=== PATIENT | female | born 1990 | race Caucasian/White ===

== ENCOUNTER → 2020-04-10 | Outpatient (CLI) | payer BC | LOC: DIA.ED 09:30 | DX: O24.419 Gestational diabetes mellitus in pregnancy, unspecified control (principal); E03.9 Hypothyroidism, unspecified | CPT/HCPCS: G0108 ==

== ENCOUNTER → 2020-04-20 | Outpatient (CLI) | payer BC | LOC: DIA.ED 10:15 | DX: O24.419 Gestational diabetes mellitus in pregnancy, unspecified control (principal); E03.9 Hypothyroidism, unspecified | CPT/HCPCS: G0108 ==

== ENCOUNTER → 2020-06-12 | Outpatient (CLI) | payer BC | LOC: ZCOL.LAB 09:30 | DX: Z20.828 Contact with and (suspected) exposure to other viral communicable diseases (principal) ==

== ENCOUNTER 2020-06-16 06:24 | Inpatient (IN) | payer BC ==
[~2020-06-16] VITALS: Ht 157.5 cm; Wt 80.7 kg
[2020-06-16] VITALS (42 sets, daily range): BP systolic 94–153; BP diastolic 49–87; PULSE 57–97; TEMP 97.8–98.5
--- NOTE | 2020-06-16 07:42 | NUR ---
PT HERE FOR INDUCTION OF LABOR. FHT'S FOUND IN THE 120-130'S WITH MODERATE VARIABILITY AND ACCELS. PLAN OF CARE REVIEWED WITH PT AND SIGNIFICANT OTHER. IV STARTED IN LEFT HAND WITH LR INFUSING WITHOUT DIFFICULTY. IV OF PEN G 5,000,000 UNITS STARTED AT 0730.
--- NOTE | 2020-06-16 08:00 | NUR ---
DR KIRKLAND HERE TO SEE PT. BEDSIDE ULTRASOUND PERFORMED AND BABY IS IN VERTEX POSITION. /-3. AROM NOT PERFORMED AT THIS TIME.
--- NOTE | 2020-06-16 08:16 | NUR ---
BLOOD GLUCOSE 122. OK PER DR KIRKLAND FOR PT TO USE OWN GLUCOMETER FOR EVERY 2 HOUR BLOOD SUGAR CHECKS
[2020-06-16 08:52] LABS: BASO % 0.3 % (0.0-2.0); EOS # 0.1 (0.0-0.7); EOS % 0.5 % (0-4.0); GRAN # 8.9 (1.4-6.5); GRAN % 72.4 % (42.2-75.2); HEMOGLOBIN 11.5 g/dl (12.5-16.0); LYMPH # 2.7 (1.2-3.4); MEAN CELL VOLUME 81 fl (80.0-100.0); MEAN CORPUSCULAR HEMOGLOBIN 26 pg (27.0-31.0); MEAN CORPUSCULAR HGB CONC 33 g/dl (33.0-37.0); MEAN PLATELET VOLUME 11.9 fl (7.4-10.4); MONO # 0.5 (0.1-0.6); MONO % 4.1 % (1.7-9.3); PLATELET COUNT 234 K/mm3 (130-400); REDCELL DISTRIBUTION WIDTH-CV 13.2 % (11.5-14.5)
[2020-06-16 08:57] LABS: HEMATOCRIT 35.4 % (37.0-47.0)
--- NOTE | 2020-06-16 10:00 | NUR ---
BLOOD SUGAR 100
--- NOTE | 2020-06-16 10:16 | NUR ---
TOCO READJUSTED IN ATTEMPT TO VACUUM SPINDLE SANDER CONTRACTIONS AGAIN. PT REPORTING SHE IS FEELING CONTRACTIONS MORE.
--- NOTE | 2020-06-16 11:00 | NUR ---
DR KIRKLAND HERE AT 1055. SVE /-3. AROM AT 1057 WITH CLEAR FLUID. PT REQUESTING EPIDURAL. LR FLUID BOLUS STARTED. KARIN KNOX, NOTIFIED PT WANTS EPIDURAL.
--- NOTE | 2020-06-16 11:15 | NUR ---
[employer]IOLOGIC TECHNOLOGIST, IN AT 1107 FOR EPIDURAL PLACEMENT. PT SITTING UP FOR EPIDURAL. SINGLE SHOT AT 1115 WITH NO ABNORMAL SYMPTOMS NOTED/REPORTED.
--- NOTE | 2020-06-16 12:00 | NUR ---
BLOOD SUGAR 60
--- NOTE | 2020-06-16 12:15 | NUR ---
FHT'S WITH EARLY AND VARIABLE DECELS. REMAINS WITH MODERATE VARIABILITY. PALENCIA CATHETER PLACED WITH CLEAR YELLOW URINE RETURNED. SVE /-2
--- NOTE | 2020-06-16 12:45 | NUR ---
RECURRENT DECELS. PT REPOSITIONED WEDGE RIGHT THEN WEDGE LEFT. IV BOLUS STARTED. PITOCIN OFF AT 1237, O2 ON 10L PER MASK. PHONED DR KIRKLAND AT 1238 AND HE IS ON HIS WAY. SVE 8-9/100/0
--- NOTE | 2020-06-16 13:00 | NUR ---
DR KIRKLAND PLACES IUPC AT 1251, AMNIOINFUSION STARTED WITH WARM LR AT 1257, BOLUS INFUSING. FHT'S REMAIN WITH RECURRENT VARIABLE DECELS LASTING APPROX 60 SECONDS. OXYGEN REMAINS ON. QUESTIONS ANSWERED.
--- NOTE | 2020-06-16 13:15 | NUR ---
300CC AMNIOINFUSION BOLUS COMPLETE AT 1307, RATE DECREASED TO 100CC/HR. RECURRENT VARIABLES REMAIN. FHT'S WITH MODERATE VARIABILITY. DR KIRKLAND REMAINS AT BEDSIDE.
--- NOTE | 2020-06-16 13:20 | NUR ---
FHT'S DIFFICULT TO MONITOR. FSE APPLIED BY HITESH OLIVARES. SVE /O. VARIABLE AND EARLY DECELS WITH MODERATE VARIABILITY. CALLED DR KIRKLAND WITH UPDATE AT 2369
--- NOTE | 2020-06-16 13:38 | NUR ---
VARIABLE DECELS RESOLVING WITH AMNIOINFUSION. ONE LATE DECEL OBSERVED. MODERATE VARIABILITY REMAINS.
--- NOTE | 2020-06-16 14:15 | NUR ---
SVE 8-9/100/0; FHT'S WITH PROLONGED DECEL OVER 5 MINUTES. PT REPOSITIONED WEDGE LEFT, WEDGE RIGHT, AND SITTING UPRIGHT. BACK TO BASELINE. DR KIRKLAND IN THE HOSPITAL IN SURGERY.
--- NOTE | 2020-06-16 14:20 | NUR ---
BLOOD SUGAR 74
--- NOTE | 2020-06-16 14:30 | NUR ---
PT REPORTS BEING NAUSEATED AND START VOMITING RIGHT AFTER. FHT'S WITH DECEL DURING VOMITING OVER 4 MINUTES. SVE 9-10/100/+2. DR KIRKLAND IN TO SEE PT AT 1430
--- NOTE | 2020-06-16 14:45 | NUR ---
PT VOMITING AGAIN AND DECEL IN HEART RATE. RETURNS TO BASELINE WHEN PT DONE VOMITING.
--- NOTE | 2020-06-16 15:00 | NUR ---
AMNIOINFUSION VOLUME [id number]; PAD WEIGHED AND AMOUNT ON [id number]
--- NOTE | 2020-06-16 15:01 | NUR ---
ZOFRAN 4MG GIVEN IV AT 1453 FOR NAUSEA AND VOMITING. FHT'S WITH VARIABLE DECELS AND PROLONGED DECELS WITH VOMITING.
--- NOTE | 2020-06-16 15:30 | NUR ---
PT ONCE AGAIN VOMITING AND HEART TONES WITH DECELS DURING VOMITING BUT RECOVERS TO BASELINE ONCE PT FINISHED VOMITING. PEN G DOSE #[address] KIRKLAND IN AT 1527. SVE WITH SLIGHT CHANGE. ORDERS PITOCIN TO BE RESTARTED. STARTED PITOCIN AT 2MU AT 1529
--- NOTE | 2020-06-16 15:45 | NUR ---
PT FEELING BETTER. NAUSEA/VOMITING HAS SUBSIDED. OCCASIONAL EARLY DECELS.
--- NOTE | 2020-06-16 16:15 | NUR ---
SVE-COMPLETE/100/+2. PT PREPPED AND POSITIONED FOR PUSHING. PALENCIA CATHETER REMOVED
--- NOTE | 2020-06-16 16:30 | NUR ---
PT PUSHING. DR KRIKLAND IN AT 1616 AND 1628 AND OBSERVES PUSHING. FHT'S IN THE 90'S A BASELINE. AT [address] KIRKLAND COMES IN HE DISCUSSES THE NEED TO USE A VACUUM FOR DELIVERY THE FHT'S ARE NOT RETURNING TO 115-120 RANGE. PT AGREES TO ATTEMPT VACUUM EXTRACTION.
--- NOTE | 2020-06-16 16:46 | NUR ---
AFTER DECISION MADE FOR VACUUM EXTRACTION, FSE REMOVED AND IUPC REMOVED. EXTERNAL FHT'S FOUND IN THE 115-20 RANGE BETWEEN PUSHING DURING CONTRACTIONS. PT ABLE TO VERBALIZE WHEN SHE IS HAVING CONTRACTIONS. VACUUM APPLIED BY DR KIRKLAND. 2 POP-OFFS BEFORE DELIVERY OF INFANT AT 1646. INFANT PLACED ON MOTHER'S CHEST AFTER DELIVERY. PITOCIN STOPPED.
--- NOTE | 2020-06-16 16:53 | NUR ---
DR KIRKLAND AT BEDSIDE REPAIRING PERINEUM. FUNDUS FIRM WITH MINIMAL BLEEDING OBSERVED. SPONTANEOUS DELIVERY OF PLACENTA AT 1651. PITOCIN RESTARTED AFTER DELIVERY OF PLACENTA AND RUNNING AT 333ML/HR.
--- NOTE | 2020-06-16 17:50 | NUR ---
IV TO INT AT THIS TIME. EPIDURAL CATHETER REMOVED WITH TIP INTACT. BANDAID APPLIED TO SITE
[2020-06-17 00:40] VITALS: BP 100/58; PULSE 87; TEMP 97.5
[2020-06-17 04:50] VITALS: BP 106/50; PULSE 93; TEMP 97.6
[2020-06-17 08:20] VITALS: BP 115/59; PULSE 75; TEMP 97.6
[2020-06-17 08:48] LABS: HEMATOCRIT 27.1 % (37.0-47.0); HEMOGLOBIN 8.8 g/dl (12.5-16.0)
[2020-06-17] MEDS ORDERED: PERCOCET 325 MG1 TA2 PO (09:23)
[2020-06-17] MEDS ORDERED: MOTRIN 600600 MG/TAB PO (09:23)
[2020-06-17] MEDS ORDERED: FERROUS SU325 MG/TAB PO (09:24)
[2020-06-17 11:30] VITALS: BP 114/52; PULSE 74; TEMP 97.9
[2020-06-17 15:50] VITALS: BP 102/49; PULSE 74; TEMP 98.2
[2020-06-17 20:30] VITALS: BP 96/54; PULSE 61; TEMP 97.4
[2020-06-18 02:00] VITALS: BP 102/54; PULSE 71; TEMP 97.7
[2020-06-18 07:00] VITALS: BP 104/54; PULSE 67; TEMP 97.7
== END 2020-06-18 13:45 | disposition home or self-care (01) | DRG 807 ==
LOC: OB 06:24 → LDR 06:47 → OB 12:06
PROVIDERS: ADMIT Obstetrics & Gynecology
PROC: 10D07Z6 Extraction of Products of Conception, Vacuum, Via Natural or Artificial Opening (ICD-10-PCS; principal; 2020-06-16)
PROC: 0W8NXZZ Division of Female Perineum, External Approach (ICD-10-PCS; 2020-06-16)
PROC: 10907ZC Drainage of Amniotic Fluid, Therapeutic from Products of Conception, Via Natural or Artificial Opening (ICD-10-PCS; 2020-06-16)
PROC: 3E033VJ Introduction of Other Hormone into Peripheral Vein, Percutaneous Approach (ICD-10-PCS; 2020-06-16)
DX: O48.0 Post-term pregnancy (principal); Z37.0 Single live birth; O99.284 Endocrine, nutritional and metabolic diseases complicating childbirth; E28.2 Polycystic ovarian syndrome; E03.9 Hypothyroidism, unspecified; O99.824 Streptococcus B carrier state complicating childbirth; O24.429 Gestational diabetes mellitus in childbirth, unspecified control; O76 Abnormality in fetal heart rate and rhythm complicating labor and delivery; O99.02 Anemia complicating childbirth; D64.9 Anemia, unspecified; Z3A.40 40 weeks gestation of pregnancy
CPT/HCPCS: J2405; J2540; J2590; J2795; J7120

== ENCOUNTER 2021-12-31 07:28 | Inpatient (IN) | payer BC ==
[~2021-12-31] VITALS: Ht 157.5 cm; Wt 80.0 kg
[~2021-12-31 07:28] MED LIST: FERROUS SU325 MG/TAB PO; MOTRIN 600600 MG/TAB PO; PERCOCET 325 MG1 TA2 PO
[2022-01-01] VITALS (27 sets, daily range): BP systolic 96–135; BP diastolic 42–93; PULSE 60–108; TEMP 98.2–98.7
--- NOTE | 2022-01-01 06:30 | NUR ---
0630 - PATIENT AMBULATORY TO LDR6 ACCOMPANIED BY SPOUSE. PATIENT ORIENTED TO ROOM AND CHANGES INTO GOWN. 0651 - PLAN OF CARE DISCUSSED. PATIENT PLACED ON MONITOR. VS OBTAINED AND WNL. IV PLACED AND LABS OBTAINED ORDERED. 0700 - LR INITIATED ORDERED. CONSENTS REVIEWED AND SIGNED. CARE ONGOING.
[2022-01-01 07:39] LABS: BASO % 0.4 % (0.0-2.0); EOS # 0.1 K/mm3 (0.0-0.7); EOS % 0.7 % (0.0-4.0); GRAN # 7.3 K/mm3 (1.4-6.5); GRAN % 73.5 % (42.2-75.2); LYMPH % 19.7 % (20.0-51.0); MEAN CELL VOLUME 78 fl (80.0-100.0); MEAN CORPUSCULAR HEMOGLOBIN 25 pg (27-31); MEAN CORPUSCULAR HGB CONC 32 g/dl (33.0-37.0); MEAN PLATELET VOLUME 11.7 fl (7.4-10.4); MONO # 0.5 K/mm3 (0.1-0.6); MONO % 4.9 % (1.7-9.3); PLATELET COUNT 211 K/mm3 (130-400); RED BLOOD COUNT 4.39 M/mm3 (4.10-5.30); REDCELL DISTRIBUTION WIDTH-CV 13.2 % (11.5-14.5)
[2022-01-01 07:42] LABS: HEMATOCRIT 34.3 % (37.0-47.0)
--- NOTE | 2022-01-01 09:12 | NUR ---
09 - PATIENT AMBULATING FOR BRP. MD ISAEL AT BEDSIDE. PLAN OF CARE DISCUSSED. PATIENT POSITIONED IN BED. 915 - SVE PERFORMED BY . . 916 - AROM PERFORMED BY . CLEAR FLUID NOTED. CARE ONGOING.
--- NOTE | 2022-01-01 09:57 | NUR ---
0957 - KARIN BRYANT AT BEDSIDE. PLAN OF CARE DISCUSSED. 1000 - PATIENT POSITIONED AT EDGE OF BED FOR EPIDURAL PLACEMENT. TIMEOUT COMPLETED. 1007 - TEST DOSE GIVEN BY KARIN BRYANT. 1012 - PATIENT TOLERATED WELL. PATIENT REPOSITIONED. SAFETY PRECAUTIONS DISCUSSED. CARE ONGOING.
--- NOTE | 2022-01-01 11:08 | NUR ---
1104 - PATIENT COMPLETE PER Tammie MONTANO RN. TEST PUSH DONE. GOOD EFFORT NOTED. 1108 - MD CED NOTIFIED THAT HE IS NEEDED FOR DELIVERY MD ISAEL IS SCRUBBED IN ON A SURGERY. 1112 - MD CED AT BEDSIDE. PATIENT PREPPED FOR VAGINAL DELIVERY. PATIENT UNCOMFORTABLE WITH CONTRACTIONS. 1118 - PATIENT BEGINS PUSHING WITH CONTRACTIONS. 1130 - PATIENT CONTINUES TO PUSH WITH CONTRACTIONS. MD ISAEL TO BEDSIDE PUSHING WITH PATIENT. FETUS POSITION NOTED OP. 1150 - PATIENT CONTINUES TO PUSH WITH CONTRACTIONS. VARIABLE DECELS NOTED. 1200 - SPONTANEOUS VAGINAL DELIVERY OF VIABLE FEMALE. HEAD FOLLOWED BY BODY. TO PATIENT'S ABDOMEN. James TILLMAN RN ASSUMES CARE OF INFANT. CORD CLAMPED X2 BY PHYSICIAN. FOB CUTS CORD. CORD BLOOD OBTAINED. 1203 - SPONTANEOUS DELIVERY OF INTACT PLACENTA. PITOCIN BOLUS STARTED. FUNDAL MASSAGE DONE. BLEEDING WNL AND FUNDUS FIRM. STRAIGHT CATH COMPLETED BY MD. PHYSICIAN REPAIRING LAC. HATTIE CARE COMPLETED. ICE PACK TO PERINEUM. PATIENT REPOSITIONED. CARE ONGOING.
[2022-01-02 01:00] VITALS: BP 100/58; PULSE 78; TEMP 98.6
[2022-01-02 05:30] VITALS: BP 92/46; PULSE 81; TEMP 98.8
[2022-01-02 06:22] LABS: HEMATOCRIT 31.6 % (37.0-47.0); HEMOGLOBIN 9.9 g/dl (12.5-16.0)
[2022-01-02] MEDS ORDERED: MOTRIN 600600 MG/TAB PO (09:08)
--- NOTE | 2022-01-02 09:40 | NUR ---
Initial visit; Parents thanked [employer] for offering congratulations and God's blessings for the of their daughter. [employer] thanked family for choosing our hospital.
== END 2022-01-02 14:55 | disposition home or self-care (01) | DRG 807 ==
LOC: LDR 01-01 06:23 → OB 01-01 15:30
PROVIDERS: ADMIT Obstetrics & Gynecology
PROC: 10E0XZZ Delivery of Products of Conception, External Approach (ICD-10-PCS; principal; 2022-01-01)
PROC: 0KQM0ZZ Repair Perineum Muscle, Open Approach (ICD-10-PCS; 2022-01-01)
PROC: 10907ZC Drainage of Amniotic Fluid, Therapeutic from Products of Conception, Via Natural or Artificial Opening (ICD-10-PCS; 2022-01-01)
PROC: 3E033VJ Introduction of Other Hormone into Peripheral Vein, Percutaneous Approach (ICD-10-PCS; 2022-01-01)
DX: O24.420 Gestational diabetes mellitus in childbirth, diet controlled (principal); Z37.0 Single live birth; O99.284 Endocrine, nutritional and metabolic diseases complicating childbirth; E03.9 Hypothyroidism, unspecified; E28.2 Polycystic ovarian syndrome; O70.1 Second degree perineal laceration during delivery; O69.81X0 Labor and delivery complicated by cord around neck, without compression, not applicable or unspecified; O99.02 Anemia complicating childbirth; D64.9 Anemia, unspecified; Z3A.40 40 weeks gestation of pregnancy
CPT/HCPCS: J2405; J2590; J2791; J7120